=== PATIENT | male | born 1990 | race Caucasian/White ===

== ENCOUNTER 2023-05-23 18:12 | Emergency (ER) | payer MEDICARE, SELFPAY ==
[2023-05-23 18:14] VITALS: BP 133/106
--- NOTE | 2023-05-23 20:01 | ED.GENMED ---
History of Present Illness
General
Chief Complaint: Nasal Problem
Source: patient
Exam Limitations: none
Time Seen by Provider: 05/23/23 19:20
Nursing documentation reviewed up to this point in time: agreed with
Travel History
Have you had any contact with someone who has COVID-19?: No
Do you have any symptoms of coronavirus? Fever > 100 degrees, chills, cough, shortness of breath, sore throat, loss of taste or smell, muscle aches, or headache?: No
History of Present Illness
History of Present Illness:
Patient presents to ED secondary to 10-day history of intermittent right side of nose pain, right cheek pain, and toothache. Denies fever or chills. Denies difficulty breathing. Denies headache. Denies sore throat. Denies nausea or vomiting.
Denies loss of appetite. Patient does admit to having snorted drugs in the past, including opioids, and is concerned whether or not he may have damaged his nasal passageway. In addition, patient reports that he is overdue, in terms of seeing a
dentist.
Review of Systems
Review of Systems
Allergies reviewed?: Yes
All Other Systems: ROS reviewed and negative except as documented in HPI and ROS
Constitutional: Reports no symptoms
EENT: Reports other (Nose pain)
Respiratory: Reports no symptoms; Denies cough or trouble breathing
Cardiac: Reports no symptoms
ABD/GI: Reports no symptoms; Denies nausea or vomiting
Musculoskeletal: Reports other (Facial pain)
Skin: Reports no symptoms
Neurological: Reports no symptoms
Phy Exam
Physical Exam
Physical Exam:
Physical Exam
General: no apparent distress, not acutely ill. afebrile
Head: nc/at. eomi
Neck: supple. no meningeal signs. normal posterior pharynx. poor dentition noted with multiple cavities.
Nose: nasal passages clear. no deformity noted.
Abdomen: normal bowel sounds. not tender.
Neuro: alert and oriented. no focal neurological deficits
Skin: no rash
Psychiatric: well kept. interactive and cooperative
Extremities: no edema. no calf tenderness.
Course
Vital Signs
Initial and Last Documented VS:
Initial Vital Signs
Temp Pulse Resp BP Pulse Ox
98.6 F 119 18 133/106 99
05/23/23 18:14 05/23/23 18:14 05/23/23 18:14 05/23/23 18:14 05/23/23 18:14
Last Documented Vital Signs
Temp Pulse Resp BP Pulse Ox
98.6 F 119 18 136/106 99
05/23/23 18:14 05/23/23 18:14 05/23/23 18:14 05/23/23 20:03 05/23/23 20:03
MDM/Problems Addressed
MDM/Problems Addressed:
History and exam concerning for likely sinusitis versus gingivitis, causing facial pain. Otherwise, patient is afebrile, hemodynamically stable, and nontoxic-appearing. Patient will be started on clindamycin empirically, along with recommendation
to follow-up with ENT physician as well as dentist. As patient currently does not have any dental insurance, advise reaching out to nearby hospitals that also have dental clinics, i.e. [facility]. Patient expresses understanding at time of
discharge.
*Critical Care Note
Total Time (30-74mins, 75-104mins- exclusive of procedures): Not Applicable
ED Attending Note
-
Portions of this chart may have been created with voice recognition software.� Occasional wrong word or��sound alike� substitutions may have occurred due to the inherent limitations of voice recognition software.
Discharge Plan
Departure
Patient Disposition: Home (Routine Discharge)
Date of Disposition: 05/23/23
Time of Disposition: 20:01
Patient with high blood pressure during this ER visit?: Yes
Condition: Good
Discharge Problem:
Sinusitis, Gingivitis
Instructions: Sinusitis, Adult (DC), Gingivitis (DC)
Prescriptions:
New
clindamycin HCl 300 mg capsule
300 mg PO TID Qty: 21 0RF
Referrals:
NONE,* [Family Provider] -
Activity Restrictions/Additional Instructions:
As discussed, please follow up with an ENT physician and/or dentist for further evaluation and treatment. Your prescription has been sent electronically to [facility] pharmacy in [place].
Interventions
Interventions:
*Risk Screen - Suicide Last Done: 05/23/23 18:14
*General Assessment Last Done: 05/23/23 18:14
*Neglect/Abuse Screening Last Done: 05/23/23 18:14
*ED COVID-19 Vaccine History Last Done: 05/23/23 18:14
*Nursing Disposition Last Done: 05/23/23 20:03
ED-EENT Assessment Last Done: 05/23/23 20:00
Discharge Date and Time
Discharge Date/Time: 05/23/23 20:17
[2023-05-23 20:03] VITALS: BP 136/106
== END 2023-05-23 20:17 | disposition home or self-care (01) ==
LOC: EMR 18:12
PROVIDERS: EMERGENCY PHYSICIAN Emergency Medicine
DX: J32.9 Chronic sinusitis, unspecified (principal); K05.10 Chronic gingivitis, plaque induced
CPT/HCPCS: 99282

== ENCOUNTER 2024-07-05 07:25 | Emergency (ER) | payer MEDICARE, SELFPAY ==
[2024-07-05 07:28] VITALS: BP 136/71; BMI 25.9
--- NOTE | 2024-07-05 07:55 | ED.GENMED ---
History of Present Illness
General
Chief Complaint: Psychiatric Problem
Source: patient
Exam Limitations: none
Time Seen by Provider: 07/05/24 07:50
Nursing documentation reviewed up to this point in time: agreed with
History of Present Illness
History of Present Illness:
33-year-old male with past medical history of substance abuse presents to the ER in police custody for evaluation of aggressive behavior and agitation. Apparently patient was in his apartment building trying to break into someone else's apartment
and for this reason 911 was called. Apparently on police arrival patient was behaving aggressively and was brought to the emergency room. Apparently police confiscated drug paraphernalia from the patient. On arrival patient is screaming, yelling,
cursing at staff, agitated and aggressive towards staff. Not redirectable and not providing collateral history.
Review of Systems
Review of Systems
Unable to obtain full review of systems at this time due to: due to acuity
All Other Systems: Not applicable
Phy Exam
Physical Exam
Physical Exam:
General: Awake, alert, yelling and screaming, physically aggressive behavior
Head: Normocephalic, atraumatic
Eyes: Conjunctiva normal
Throat: Airway intact
Neck: Trachea midline, moving through full range of motion
Lungs: Breathing comfortably no distress
Heart: Regular rate
Neuro: Grossly intact
Skin: No signs of trauma
Extremities: Atraumatic, warm and well-perfused
Psych: Patient is agitated and aggressive, having flights of ideas and delusions (at times stating that he is a monster, sometimes claiming he is the president, etc), combative towards staff and police
Scores
Heart Failure Risk
Heart Failure Risk Score: Not Applicable
Heart Score for Chest Pain Patients
STEMI patient?: Not applicable
Withdrawal Assessment of Alcohol
Withdrawal Assessment Completed?: Not applicable
Course
Orders/Labs/Results
Orders:
Orders
07/05/24 07:26
1:1 Observation - Suicide/ Violent Behavior As Directed
Crisis Consult Urgent
Reason for Consult: aggressive, threateining behavior
Restraints - Violent As Directed
Restraint Type-: Locked-4 point/4 rails
Apply From (date): 07/05/24
Apply from (time): 07:26
Remove (date): 07/05/24
Remove (time): 11:26
07/05/24 07:27
1:1 Observation - Suicide/ Violent Behavior As Directed
07/05/24 07:52
Haloperidol Lactate [Haldol] 5 mg .ROUTE .STK-MED ONE
Haloperidol Lactate [Haldol] 5 mg IM NOW STA
Lorazepam [Ativan] 2 mg .ROUTE .STK-MED ONE
Lorazepam [Ativan] 2 mg IM NOW STA
07/05/24 07:53
Electrocardiogram (*1) Urgent
Reason for Study: QTc Monitoring
EKG- Treatment ONCE
COVID-19 Antigen Urgent
Source: Nasal Swab
Drug Screen, Urine [Urine Drug Abuse Screen] Urgent
Date Specimen was Collected: 07/05/24
Time Specimen was Collected: 07:53
Influenza A+B Rapid Molecular Urgent
SHERWIN Source: Nasal Swab
Specimen Description:
07/05/24 08:03
PSYCHIATRY CONSULT Urgent
Consulting Provider: Max Valencia
Was physician already notified: Yes
07/05/24 08:52
Lorazepam [Ativan] 2 mg IM NOW STA
07/05/24 09:12
ED Special Safety Observation ONCE
Observation level: One to One
07/05/24 13:32
Alprazolam [Xanax] 2 mg PO NOW STA
07/05/24 13:44
Acetaminophen Urgent
Alcohol Urgent
CPK [Creatine Phosphokinase] Urgent
Complete Blood Count/With Diff Urgent
Comprehensive Metabolic Panel Urgent
07/05/24 14:00
Nicotine [Nicoderm Transdermal] 21 mg TRANSDERM DAILY
Vital Signs
Initial and Last Documented VS:
Initial Vital Signs
Temp Pulse Resp BP Pulse Ox
37.0 C 115 26 136/71 100
07/05/24 07:28 07/05/24 07:28 07/05/24 07:28 07/05/24 07:28 07/05/24 07:28
Last Documented Vital Signs
Temp Pulse Resp BP Pulse Ox
37.0 C 66 12 111/63 99
07/05/24 07:28 07/05/24 10:51 07/05/24 10:51 07/05/24 10:51 07/05/24 10:51
MDM/Problems Addressed
Differential Diagnosis Includes:
Drug intoxication, alcohol intoxication, psychosis, surya
MDM/Problems Addressed:
33-year-old male presents combative and agitated with EMS/police. Presentation as above. Physically and verbally aggressive towards staff here. Attempted redirection unsuccessfully. Patient had to be placed in 4 point restraints, will be
chemically restrained for staff and patient safety. Will sedate with Haldol and Ativan, de-escalate physical restraints as able. Will place an IV check labs including a CBC, CMP, alcohol level, UDS. Check EKG for QTc monitoring. Will watch very
closely here plan to have crisis assessment. At this point working diagnosis is drug intoxication suspect methamphetamine versus acute psychosis.
Police did file a 302 for involuntary psychiatric treatment on this patient. Upheld by delegate. Crisis to follow. Psychiatry consulted.
Patient more calm on reassessment, will de-escalate restraints.
Patient sleeping comfortably, arm restraints removed, will continue to de-escalate--remove restraints.
Patient refusing blood work; he is now much more calm and cooperative when awake but clearly very lethargic due to Haldol and Ativan. Suspect likely drug intoxication cause for initial presentation. He says that he feels fine, at this point no
clear justification for involuntarily drawing blood work. Continue to monitor. Psychiatry evaluation is pending.
Psychiatry at bedside to see�he is sleeping comfortably, difficult to fully assess due to his lethargy after Haldol and Ativan. Uphold 302 for now until able to reassess, we will observe here in the emergency room.
Psychiatry was able to get a hold of patient's significant other. Apparently patient does have some psychiatric history and apparently recently has had some delusions. Apparently he does have a history of substance use but typically
opiates�apparently police confiscated meth pipe but significant other wonders if this may have actually been a bong. Patient a bit more awake, on reassessment psychiatry recommending upholding 302 and proceeding with involuntary inpatient
psychiatric treatment. Will proceed with blood work at this point in time to facilitate placement.
Reassessed patient� is not bedside patient very calm. He is requesting a nicotine patch which I ordered.
Chronic conditions affecting care:
Drug use
*Pulse Oximetry
Patient hypoxic: no
*Critical Care Note
Total Time (30-74mins, 75-104mins- exclusive of procedures): Not Applicable
Data Reviewed
Source: patient, ambulance crew and police
Patient Management
Social determinants of health affecting care: Substance abuse
Discussion with other providers: Painting Manager (Discussed with psychiatry at bedside) and Other (Discussed with crisis staff)
Escalation/DeEscalation of care consider admission/obs:
Inpatient psychiatric treatment
ED Attending Note
-
Portions of this chart may have been created with voice recognition software.� Occasional wrong word or��sound alike� substitutions may have occurred due to the inherent limitations of voice recognition software.
Discharge Plan
Departure
Patient Disposition: Psych Facility
Date of Disposition: 07/05/24
Time of Disposition: 10:44
Discharge Problem:
Delusion, Aggressive behavior
Prescriptions:
No Action
No Current Medications
0
Referrals:
UNKNOWN - PT NOT,INTERVIEWE [Family Provider] -
Interventions
Interventions:
*Risk Screen - Suicide Last Done: 07/05/24 07:28
*General Assessment Last Done: 07/05/24 07:28
*Neglect/Abuse Screening Last Done: 07/05/24 07:28
*ED- Fall Risk Assessment Last Done: 07/05/24 07:28
*ED COVID-19 Vaccine History Last Done: 07/05/24 07:28
ED-Psychological Assessment Last Done: 07/05/24 07:28
Discharge Date and Time
Print Language: BULGARIAN
[2024-07-05] MEDS: ATIVAN 2 MG IM (07:57)
[2024-07-05] MEDS: HALDOL 5 MG IM (07:57)
[2024-07-05 09:42] VITALS: BP 124/82
--- NOTE | 2024-07-05 10:15 | EDRN ---
four point violent restraints removed and removed from the work list, one to one observation maintained, mental health home security alarm installer outside of the pts room and Robin PCT also monitoring the pt, will continue to monitor the pt closely, the pt is
currently still refusing to provide a urine sample and is refusing to allow this RN to obtain lab work, the pt is calm currently
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
[2024-07-05 10:51] VITALS: BP 111/63
--- NOTE | 2024-07-05 13:29 | W.PN.UPDATE ---
Update Note
Progress Note Update
patient is now awake. he is delusional and paranoid. he is also very angry that he is here. i tried to explain to him the 302 process and why and how he came to be here. he did appear to understand but is still demanding to leave. he emmie agree to
take 'xanax' he said ativan does nothing for him. xanax 2 mg ordered stat. crisis is beginning the search for a dual dx bed. patient was not cooperative with getting hx much of which was obtained from his . i had interpreted the 'pending'
notice in the chart to mean labs were coming but it seems they were not done. asked dr hart to please get labs and tox screen as these will be required for psych admit. called to apprise.
--- NOTE | 2024-07-05 13:54 | EDRN ---
Blood specimens drawn by/ obtained by Dr Das. This RN scanned and sent the blood.
[2024-07-05] MEDS: NICODERM TRANSDERMAL TRANSDERM (14:02)
[2024-07-05 14:03] LABS: % Basophils 0.4 % (0-2); % Eosinophils 0.7 % (0-6); % Immature Granulocytes 0.1 % (0-0.5); % Lymphocytes 31.2 % (20.5-51.1); % Neutrophils 60.6 % (42.2-75.2); Absolute Eosinophils 0.1 10^3/uL (0-0.7); Absolute Lymphocytes 2.6 10^3/uL (1.2-3.4); Absolute Monocytes 0.6 10^3/uL (0.1-0.6); Hematocrit 39.7 % (39.0-52.0); Hemoglobin 14.1 g/dL (13.0-18.0); Mean Corp Hgb Conc. 35.5 g/dL (33.0-37.0); Mean Corpuscular Hgb 29.9 pg (27.0-31.0); Mean Corpuscular Volume 84.3 fL (80.0-94.0); Mean Platelet Volume 9.4 fL (7.4-10.4); Nucleated Red Blood Cells % 0 % (-); Platelet Count 219 10^3/uL (130-400); Red Blood Cell Count 4.71 10^6/uL (4.70-6.10); Red Cell Dist. Width 13.2 % (11.5-14.5); White Blood Cell Count 8.3 10^3/uL (4.8-10.8)
[2024-07-05 14:10] LABS: ALT (SGPT) 19 U/L (0-50); AST (SGOT) 28 U/L (17-59); Albumin 4.6 g/dl (3.5-5.0); Alkaline Phosphatase 59 U/L (38-126); Blood Urea Nitrogen 20 mg/dl (9-20); Calcium 9.5 mg/dl (8.4-10.2); Carbon Dioxide 24 mmol/L (22-30); Chloride 107 mmol/L (98-107); Estimated Creatinine Clearance 123 ml/min; Glucose 118 mg/dl (70-99); Potassium 4.1 mmol/L (3.5-5.1); Sodium 140 mmol/L (135-145); Total Bilirubin 1.2 mg/dl (0.2-1.3); Total Protein 6.7 g/dl (6.3-8.2); eGFR > 60.00
[2024-07-05 14:34] LABS: Acetaminophen < 10 ug/ml (10-30); Creatine Phosphokinase 626 U/L (55-170)
[2024-07-05 14:40] LABS: Alcohol None Detected
[2024-07-05 17:19] LABS: Amphetamines Negative (Negative); Barbiturates Negative (Negative); Benzodiazepines Positive (Negative); Buprenorphine Negative (Negative); Cocaine Negative (Negative); Marijuana Positive (Negative); Methadone Negative (Negative); Methamphetamines Negative (Negative); Opiates Negative (Negative); Phencyclidine Negative (Negative); Tricyclic Antidepressants Negative (Negative)
[2024-07-05 17:31] LABS: COVID-19 Antigen Negative (Negative)
[2024-07-05 17:34] LABS: Fentanyl, Urine Negative (Negative)
[2024-07-05] MEDS: NICODERM TRANSDERMAL 21 MG TRANSDERM (18:11)
[2024-07-05] MEDS: XANAX 2 MG PO (19:06)
== END 2024-07-05 20:30 ==
LOC: EMR 07:25
PROVIDERS: CONSULT PHYSICIAN Psychiatry & Neurology Psychiatry; EMERGENCY PHYSICIAN Emergency Medicine
DX: F22 Delusional disorders (principal); R45.1 Restlessness and agitation; F19.10 Other psychoactive substance abuse, uncomplicated
CPT/HCPCS: 99285; 80053; 80143; 80306; 80307; 82077; 82550; 85025; 87502; 87811; 93005